=== PATIENT | female | born 1995 | race Hispanic/Latino ===

== ENCOUNTER 2018-11-12 15:54 | Inpatient (IN) | payer SELFPAY ==
[2018-11-12] MEDS ORDERED: METHYLERGONOVINE 0.2MG/ML AMP IM PRN (17:45)
[2018-11-12] MEDS ORDERED: ZOLPIDEM TARTRATE 5 MG TABLET PO PRN (17:45)
[2018-11-12] MEDS ORDERED: PROMETHAZINE 25 MG/ML VIAL IM PRN (17:45)
[2018-11-12] MEDS ORDERED: MIDAZOLAM HCL 2 MG/2 ML INJ IV PRN (17:45)
[2018-11-12] MEDS ORDERED: CARBOPROST TROME 250 MCG/ML IM PRN (17:45)
[2018-11-12] MEDS ORDERED: BUTORPHANOL 1 MG/ML INJ IV PRN (17:45)
[2018-11-12] MEDS ORDERED: MEPERIDINE HCL 25 MG/0.5 ML IV PRN (17:45)
[2018-11-12] MEDS ORDERED: DIPHENHYDRAMINE 25 MG TAB/CAP PO PRN ×2 (17:45→20:57)
[2018-11-12] MEDS ORDERED: MAGNES/ALUMIN/SIMET 30ML UCUP PO PRN (17:45)
[2018-11-12] MEDS ORDERED: Ringers Lactate 1,000 ML IV PRN (17:45)
[2018-11-12] MEDS ORDERED: Ringers Lactate 1,000 ML IV SCH (18:00)
[2018-11-12] MEDS ORDERED: OXYTOCIN/LR 20 UNIT/1,000 ML BAG IV SCH ×2 (18:00→21:00)
[2018-11-12 18:08] LABS: RPR Titer ND
[2018-11-12 18:11] LABS: Urine Appearance CLOUDY; Urine Bilirubin NEGATIVE (NEG); Urine Blood 3+ (NEG); Urine Color YELLOW; Urine Glucose NEGATIVE (NEG); Urine Protein TRACE (NEG); Urine Specific Gravity 1.025 (1.005-1.030)
[2018-11-12 18:13] LABS: Absolute Lymphocytes (CBC) 1.7 K/uL (0.7-4.9); Absolute Monocytes 0.6 K/uL (0.1-1.3); Absolute Neutrophil 7.4 K/uL (1.8-8.0); Basophils % 0.2 % (0-1.3); Eosinophils % 0.1 % (0-4.4); Hematocrit 35.4 % (36.0-45.0); Lymphocytes % 17.5 % (15.3-44.8); MPV 8.3 fL (7.6-11.3); Monocytes % 6.4 % (3.3-12.3); RBC Red Blood Cell Count 4.09 M/uL (3.86-4.86)
[2018-11-12 18:14] LABS: Urine Microscopic Reflex ORDER UMIC
[2018-11-12 18:25] LABS: Urine Bacteria 20-50 /HPF (<20); Urine RBC <5 /HPF (NONE SEEN)
[2018-11-12 18:26] LABS: Urine Culture Reflex Order NOT NEEDED
[2018-11-12 18:49] VITALS: BMI 32.7
[2018-11-12] MEDS ORDERED: LIDOCAINE 1% MPF 30 ML VIAL ONE (19:29)
[2018-11-12] MEDS ORDERED: CARBOPROST TROME 250 MCG/ML IM ONE (19:32)
[2018-11-12] MEDS ORDERED: LIDOCAINE 2% INJ, 20 mL 0 ML ONE (19:32)
[2018-11-12] MEDS ORDERED: DOCUSATE NA/SENNA CONC 1 TAB PO PRN (20:57)
[2018-11-12] MEDS ORDERED: BISACODYL 10 MG RECTAL SUPP RECT PRN (20:57)
[2018-11-12] MEDS ORDERED: Oxycodone HCl/Acetaminophen 1 TAB TAB PO PRN (20:57)
[2018-11-12] MEDS ORDERED: IBUPROFEN 200 MG TAB PO PRN (20:57)
[2018-11-12] MEDS ORDERED: ACETAMINOPHEN 500 MG TAB PO PRN (20:57)
[2018-11-12 21:27] LABS: RPR (Rapid Plasma Reagin) NON-REACT (NON-REACT)
[2018-11-12] MEDS: METHYLERGONOVINE 0.2 MG TAB PO PRN (22:30)
--- NOTE | 2018-11-12 22:54 | PREOPHP ---
Date of Admission: 11/12/2018 A 23-year-old 2, para 1, 38 weeks 4 days, seen in the office earlier in the day and noted to be 3 to 3.5 cm. Came into labor and delivery. Several hours later jackelyn every 2 minutes and 4 cm. She is now 5 cm, 70% effaced, vertex, -1 station, well applied. Rupture of membranes, clear fl uid. FHT is normal and reactive. Anticipate really relatively fast labor once she hits the active p hase. Labor and admission talk given. Doing well with no analgesics at this point. ROBERTOC/MODL Voice ID: [id number]
--- NOTE | 2018-11-13 01:39 | PN ---
, the patient had mild hypotonus, 0.2 mg of Methergine IM. This was followed by Hemabate 2 50 units IM, massage, and IV drip Pitocin. The patient's estimated blood loss at this point is 500 c c. Blood pressure is approximately 130/80 with 91 of pulse. She is quite stable. Placenta was insp ected, completely normal. She said she had no bleeding problems after first delivery. We will keep the IV open until the morning and continue p.o. Methergine in the period for at least 4 do ses. NEW/MORGAN Voice ID: [id number] Report ID: [id number]
--- NOTE | 2018-11-13 02:21 | OP ---
Surgeon: Ravi Hayward MD A 23-year-old 2, para 1, 38 weeks and 4 days. Came in active labor, 4 cm on admission, contr acting every 2 minutes. Rh positive, immune to Rubella. Negative beta-strep screen. Rupture of mem branes, clear fluid. Used Lamaze breathing techniques. Went rapidly to complete, from 6 cm to compl ete. Spontaneous precipitous but controlled delivery of an estimated 7 pound female. Apgars 9 and 9 . No episiotomy. No laceration. Schultze delivery of the placenta, which was inspected and noted t o be intact and normal. A 350 cc or less blood loss. Tolerated all procedures well. No lacerations worthy of suturing. Final Diagnoses: Term intrauterine at 38 weeks 4 days, spontaneous labor, vaginal delivery . NEW/MORGAN Voice ID: [id number] Report ID: [id number]
[2018-11-13] MEDS: METHYLERGONOVINE 0.2 MG TAB PO PRN ×5 (02:30→23:03)
[2018-11-13] MEDS: Oxycodone HCl/Acetaminophen 1 TAB TAB PO PRN (04:18)
[2018-11-13 04:37] LABS: Hematocrit 30.2 % (36.0-45.0)
[2018-11-14] MEDS: Oxycodone HCl/Acetaminophen 1 TAB TAB PO PRN ×2 (00:05→08:10)
[2018-11-14 09:46] VITALS: BP 107/69; TEMP 97.8
[2018-11-16 02:52] LABS: HBsAG Nonreactive (Nonreactive)
== END 2018-11-14 08:45 | disposition home or self-care (01) | DRG 807 ==
LOC: L&D 15:54 → 2ND-WC 17:25
PROVIDERS: ADMIT Specialist; ATTEND Specialist
PROC: 10E0XZZ Delivery of Products of Conception, External Approach (ICD-10-PCS; principal; 2018-11-12)
PROC: 10907ZC Drainage of Amniotic Fluid, Therapeutic from Products of Conception, Via Natural or Artificial Opening (ICD-10-PCS; 2018-11-12)
DX: O62.2 Other uterine inertia (principal); Z37.0 Single live birth; Z3A.38 38 weeks gestation of pregnancy
CPT/HCPCS: 36415; 81003; 81015; 85014; 85018; 85025; 86592; 86901; 87340; J0595; J2175; J2210; J2550; J2590